=== PATIENT | female | born 1965 | race African-American/Black ===

== ENCOUNTER 2019-02-03 12:50 | Emergency (ER) | payer MEDICAID ==
[~2019-02-03] VITALS: Ht 160 cm; Wt 83.0 kg
[2019-02-03 13:23] VITALS: BP 140/81
[2019-02-03] MEDS ORDERED: DEXAMETHASONE SOD PHOS 4 MG/ML 5 ML VIAL IM ONE (13:45)
== END 2019-02-03 14:42 | disposition home or self-care (01) ==
LOC: EMS 12:58
DX: T78.40XA Allergy, unspecified, initial encounter (principal); F17.210 Nicotine dependence, cigarettes, uncomplicated; F12.90 Cannabis use, unspecified, uncomplicated; F19.90 Other psychoactive substance use, unspecified, uncomplicated; X58.XXXA Exposure to other specified factors, initial encounter
CPT/HCPCS: 96372; 99283; J1100